=== PATIENT | male | born 1945 | race Two or more races ===

== ENCOUNTER 2018-05-08 10:58 | Inpatient (IN) | payer OTHER ==
[~2018-05-08] VITALS: Ht 172.7 cm; Wt 63.5 kg
[2018-05-14] MEDS ORDERED: TOPROL XL25 M1 PO (19:04)
[2018-05-20] MEDS ORDERED: CLONAZEPAM0.5 M1 PO (13:25)
[2018-05-20] MEDS ORDERED: COLACE100 MG PO (13:25)
[2018-05-20] MEDS ORDERED: PERCOCET 5-3251 EACH PO (13:25)
[2018-05-20] MEDS ORDERED: AMOX-CLAV 875-1 EACH PO (13:25)
[2018-05-20] MEDS ORDERED: NEURONTIN800 MG PO (13:25)
== END 2018-05-21 19:24 | DRG 455 ==
LOC: SURH 05-20 06:05 → O/R 05-20 06:05 → SURH 05-20 15:15
PROVIDERS: ADMIT Orthopaedic Surgery Orthopaedic Surgery of the Spine
PROC: 0SG0071 Fusion of Lumbar Vertebral Joint with Autologous Tissue Substitute, Posterior Approach, Posterior Column, Open Approach (ICD-10-PCS; 2018-05-20)
PROC: 0SG00AJ Fusion of Lumbar Vertebral Joint with Interbody Fusion Device, Posterior Approach, Anterior Column, Open Approach (ICD-10-PCS; 2018-05-20)
PROC: 0ST20ZZ Resection of Lumbar Vertebral Disc, Open Approach (ICD-10-PCS; 2018-05-20)
PROC: 07DS3ZZ Extraction of Vertebral Bone Marrow, Percutaneous Approach (ICD-10-PCS; 2018-05-20)
PROC: 4A12X4Z Monitoring of Cardiac Electrical Activity, External Approach (ICD-10-PCS; 2018-05-20)
PROC: 0SG00A0 Fusion of Lumbar Vertebral Joint with Interbody Fusion Device, Anterior Approach, Anterior Column, Open Approach (ICD-10-PCS; principal; 2018-05-20 15:15)
DX: M43.16 Spondylolisthesis, lumbar region (principal); M48.062 Spinal stenosis, lumbar region with neurogenic claudication; M51.16 Intervertebral disc disorders with radiculopathy, lumbar region